=== PATIENT | male | born 1990 | race Caucasian/White ===

== ENCOUNTER 2019-05-20 17:03 | Emergency (ER) | payer SELFPAY ==
[~2019-05-20] VITALS: Ht 165.1 cm; Wt 78.5 kg
[2019-05-20 17:07] VITALS: Ht 165.1 cm; Wt 78.5 kg
[2019-05-20] MEDS ORDERED: HYDROCODONE/APAP (5/325) TAB PO ONE (18:30)
[2019-05-20] MEDS ORDERED: LIDOCAINE 1% (MDV) 20 ML INJ SC ONE (18:30)
[2019-05-20] MEDS ORDERED: DIPHTH/TET/ACEL PERTUSS (ADULT) 0.5 ML VIAL IM* ONE (20:00)
--- NOTE | 2019-05-20 20:12 | ERD ---
ER Documentation Chief Complaint Chief Complaint LEFT HAND LACERATION HPI Patient is a 29-year-old male, presents to the ER for concerns of a laceration to his left hand. Laceration occurred prior to arrival. Patient was using a sample box maker to cut a box when he accidentally injured his hand. Patient is able to bend his thumb without any difficulty. Patient is right-hand dominant. Patient states his tetanus vaccine is not up-to-date. ROS All systems reviewed and are negative except as per history of present illness. Medications Home Meds Active Scripts Cephalexin* (Keflex*) 500 Mg Capsule, 500 MG PO TID for 7 Days, CAP Prov:EDUARDO DAWN-Debra 05/20/19 Acetaminophen* (Tylophen*) 500 Mg Capsule, 1 CAP PO Q6H PRN for PAIN AND OR ELEVATED TEMP, #20 CAP Prov:EDUARDO DAWN PA-C 05/20/19 Allergies Allergies: Coded Allergies: No Known Allergy (Unverified , 05/20/19) PMhx/Soc Medical and Surgical Hx: pt denies Medical Hx, pt denies Surgical Hx Hx Alcohol Use: No Hx Substance Use: No Hx Tobacco Use: No Smoking Status: Never smoker FmHx Family History: No diabetes Physical Exam Vitals Vital Signs Date Temp Pulse Resp B/P (MAP) Pulse Ox O2 O2 Flow FiO2 Time Delivery Rate 05/20/19 98.5 79 24 129/79 99 17:07 (96) Physical Exam GENERAL: Well-developed, well-nourished male. Appears in no acute distress. HEAD: Normocephalic, atraumatic. EYES: Pupils are equally reactive bilaterally. EOMs grossly intact. No conjunctival erythema. NECK: Supple. No meningismus. Normal range of motion of the neck. LUNG: Clear to auscultation bilaterally. No rhonchi, wheezing, rales or coarse breath sounds. HEART: Regular rate and rhythm. No murmurs, rubs or gallops. EXTREMITIES: Equal pulses bilaterally. No peripheral clubbing, cyanosis or edema. No unilateral leg swelling. NEUROLOGIC: Alert and oriented. Moving all four extremities without any difficulty. Normal speech. Steady gait. SKIN: 5 cm linear laceration noted on the distal aspect of the thumb and on the thenar region. Minimal active bleeding. Patient is able to bend at ITP and MCP joints of thumb without any difficulty. Patient is able to perform thumb extension and opposition. Results 24 hrs Current Medications Medications Dose Sig/Arun Start Time Status Last (Trade) Ordered Route PRN Stop Time Admin Dose Reason Admin Lidocaine 20 ml ONCE ONCE 05/20/19 DC (Xylocaine SC 18:30 1% (Mdv) 20 05/20/19 18:31 ml) 1 tab ONCE ONCE 05/20/19 DC Acetaminophen PO 18:30 / 05/20/19 19:47 Hydrocodone Bitart ([place] (5/325)) Diphtheria/ 0.5 ml ONCE ONCE 05/20/19 DC 05/20/19 Tetanus/Acell IM* 20:00 19:44 Pertussis 05/20/19 20:01 (Adacel) Procedures/MDM ED COURSE: The patient was stable throughout ED course. I kept the patient and/or family informed of laboratory and diagnostic imaging results throughout the ED course. DIAGNOSTIC IMAGING: Read by radiologist. DIAGNOSTIC IMAGING REPORT Patient: ASHLEY VYAS : 1990 Age: 29 Sex: M MR #: [id number] DOS: 05/20/19 1825 Ordering MD: EDUARDO DAWN PA-C Location: [facility] Room/Bed: PROCEDURE: Left hand x-ray CLINICAL INDICATION: left hand laceration TECHNIQUE: AP, lateral and oblique views of the left hand were obtained. COMPARISON: None FINDINGS: There is normal mineralization. No acute fracture or dislocation is seen. There are no significant degenerative changes. There is soft tissue swelling overlying the thenar and hypothenar eminences.. IMPRESSION: No acute fracture or subluxation. Soft tissue swelling as above. RPTAT: HRSD Physician Valdemar Date Time Electronically viewed and signed by Physician Valdemar on 05/20/2019 19:30 RD/ CC: EDUARDO DAWN PA-C [id number] PROCEDURES: Laceration Repair: The patient was verbally consented prior to procedure. Patient was explained the risks, benefits and alternatives to this procedure. Length: 5 cm Irrigation: Thorough irrigation was performed with normal saline and adequate pressure. Inspection: The wound was thoroughly explored and no foreign bodies, deep tissue, tendon or structural injuries were noted. Anesthesia: 8 cc 1% Lidocaine, no epi Repair: The area was prepared and draped in the usual sterile manner with the wound exposed. 14 Prolene 4-0 sutures were placed with good wound closure and wound approximation. Bleeding was minimal. The patient tolerated the procedure well with no complications. The wound was dressed with bacitracin and sterile gauze. The patient was neurovascularly intact post-procedure. Post-procedural wound care was discussed with the patient. SPLINT APPLICATION: The patient was verbally consented at bedside prior to splint application. Patient was explained the risks, benefits and alternatives to this procedure. The patient was neurovascularly intact prior to and status post application of the splint. The patient tolerated the procedure well with no complications. Splint type: thumb spica splint Extremity: left hand Indication: Suture repair, prevent sutures from being torn MEDICATIONS GIVEN: Tdap Patient tolerated medication well with no adverse reactions. Patient reported improvement in pain. MEDICAL DECISION MAKIN-year-old male presents ER for concern of laceration to his left hand. Vital signs were reviewed. Patient was afebrile. X-ray imaging was unremarkable. See formal report above. The wound was cleansed thoroughly and closed using sutures. The patient had good wound closure and wound approximation. Patient tolerated wound closure without any complications. Given the location of the laceration, patient was placed in a thumb spica splint which will only be worn for the next 2 days until patient comes in for wound recheck to prevent sutures from opening up. Tetanus vaccine was given today. Low suspicion for neurovascular injury, tendon or ligament injury, open fracture. Patient was nontoxic, [id number] prior to discharge. PRESCRIPTIONS: Keflex, Tylenol DISCHARGE: At this time, the patient is stable for discharge and outpatient management. Post-procedural wound care was discussed with the patient. The patient has been advised to return to the ER in 2 days for a wound check and then again in [] days for suture removal. I have instructed the patient to promptly return to the ER for any new or worsening symptoms including increasing pain, fever, warmth, redness or swelling. The patient and/or family expressed understanding of and agreement with this plan. All questions were answered. Home care instructions were provided. Disclaimer: Inadvertent spelling and grammatical errors are likely due to EHR/dictation software use and do not reflect on the overall quality of patient care. Also, please note that the electronic time recorded on this note does not necessarily reflect the actual time of the patient encounter. Departure Diagnosis: Primary Impression: Laceration Condition: Fair Patient Instructions: Laceration, All Referrals: [facility] YOU HAVE RECEIVED A MEDICAL SCREENING EXAM AND THE RESULTS INDICATE THAT YOU DO NOT HAVE A CONDITION THAT REQUIRES URGENT TREATMENT IN THE EMERGENCY DEPARTMENT. FURTHER EVALUATION AND TREATMENT OF YOUR CONDITION CAN WAIT UNTIL YOU ARE SEEN IN YOUR DOCTORS OFFICE WITHIN THE NEXT 1-2 DAYS. IT IS YOUR RESPONSIBILITY TO MAKE AN APPOINTMENT FOR FOLOW-UP CARE. IF YOU HAVE A PRIMARY DOCTOR --you should call your primary doctor and schedule an appointment IF YOU DO NOT HAVE A PRIMARY DOCTOR YOU CAN CALL OUR PHYSICIAN REFERRAL HOTLINE AT IF YOU CAN NOT AFFORD TO SEE A PHYSICIAN YOU CAN CHOSE FROM THE FOLLOWING [facility] [address] [employer] [facility]. [facility] [address] [employer] [facility] [address] [facility] [facility] [address] [facility] [facility] [address] [facility]. [facility] [address] [facility]. [facility] YOU HAVE RECEIVED A MEDICAL SCREENING EXAM AND THE RESULTS INDICATE THAT YOU DO NOT HAVE A CONDITION THAT REQUIRES URGENT TREATMENT IN THE EMERGENCY DEPARTMENT. FURTHER EVALUATION AND TREATMENT OF YOUR CONDITION CAN WAIT UNTIL YOU ARE SEEN IN YOUR DOCTORS OFFICE WITHIN THE NEXT 1-2 DAYS. IT IS YOUR RESPONSIBILITY TO MAKE AN APPOINTMENT FOR FOLOW-UP CARE. IF YOU HAVE A PRIMARY DOCTOR --you should call your primary doctor and schedule and appointment IF YOU DO NOT HAVE A PRIMARY DOCTOR YOU CAN CALL OUR PHYSICIAN REFERRAL HOTLINE AT . IF YOU CAN NOT AFFORD TO SEE A PHYSICIAN YOU CAN CHOSE FROM THE FOLLOWING [facility]: [facility] [id number] [place] [address] [facility] [address] [place] [address] [facility] [address] [place] [address] Additional Instructions: Wound recheck advised in 2 days. Antibiotics as prescribed. Call your primary care doctor TOMORROW for an appointment during the next 1-2 days.See the doctor sooner or return here if your condition worsens before your appointment time. EDUARDO DAWN PA-C May 20, 2019 20:11
[2019-05-20] MEDS ORDERED: ACET500C5 PO (20:32)
[2019-05-20] MEDS ORDERED: CEPH-443 PO (20:32)
[2019-05-20 21:30] VITALS: BP 120/80; PULSE 78; RESP 16
== END 2019-05-20 21:30 | disposition home or self-care (01) ==
LOC: FTE 17:03
DX: S61.412A Laceration without foreign body of left hand, initial encounter (principal); W26.8XXA Contact with other sharp object(s), not elsewhere classified, initial encounter; Y92.9 Unspecified place or not applicable; Z23 Encounter for immunization
CPT/HCPCS: 90471; 90715